=== PATIENT | female | born 1980 | race Two or more races ===

== ENCOUNTER 2024-11-28 14:13 | Emergency (ER) | payer OTHER ==
[~2024-11-28] VITALS: Ht 162.6 cm; Wt 75.3 kg
[2024-11-28] MEDS ORDERED: TRAMADOL HCL 50 MG TABLET PO STA (16:42)
== END 2024-11-28 18:32 | disposition home or self-care (01) ==
LOC: ER 14:20
DX: M25.571 Pain in right ankle and joints of right foot (principal)